=== PATIENT | male | born 1980 | race Caucasian/White ===

== ENCOUNTER 2022-08-20 14:10 | Inpatient (IN) | payer OTHER ==
[2022-08-20 17:22] VITALS: BMI 31.8
[2022-08-20] MEDS ORDERED: MAG HYDROX/AL HYDROX/SIMETH 30 ML UNIT-DOSE CUP PO PRN (19:43)
[2022-08-20] MEDS ORDERED: MAGNESIUM CITRATE 300 ML BOTTLE PO PRN (19:43)
[2022-08-20] MEDS ORDERED: BENZOCAINE/MENTHOL (CHLORASEPTIC ) LOZENGE MM PRN (19:43)
[2022-08-20] MEDS ORDERED: DICYCLOMINE HCL 10 MG CAPSULE PO PRN (19:43)
[2022-08-20] MEDS ORDERED: ONDANSETRON *ODT* 4 MG TABLET SL PRN (19:43)
[2022-08-20] MEDS ORDERED: NALOXONE HCL (KLOXXADO) 8 MG SPRAY NS PRN (19:43)
[2022-08-20] MEDS ORDERED: BISMUTH SUBSALICYLATE 524 MG/30 ML PO PRN (19:43)
[2022-08-20] MEDS ORDERED: IBUPROFEN 400 MG TABLET (FP) PO PRN (19:43)
[2022-08-20] MEDS ORDERED: LOPERAMIDE HCL 2 MG CAPSULE PO PRN (19:43)
[2022-08-20] MEDS ORDERED: chlordiazePOXIDE HCL 25 MG CAPSULE PO PRN (19:43)
[2022-08-20] MEDS ORDERED: MAGNESIUM HYDROX 2400MG/30ML ORAL SUSPENSION 30 ML CUP PO PRN (19:43)
[2022-08-20] MEDS ORDERED: ACETAMINOPHEN 325 MG TABLET (FP) PO PRN ×2 (19:43)
[2022-08-20] MEDS: MELATONIN 5 MG TABLETS PO SCH (22:18)
[2022-08-20] MEDS: THIAMINE HCL 100 MG TABLET (FP) PO SCH (22:18)
[2022-08-20] MEDS: chlordiazePOXIDE HCL 25 MG CAPSULE PO SCH (22:18)
[2022-08-20] MEDS: METHOCARBAMOL 500 MG TABLET PO PRN (22:18)
[2022-08-21] MEDS: chlordiazePOXIDE HCL 25 MG CAPSULE PO SCH ×4 (05:11→22:09)
[2022-08-21] MEDS: IBUPROFEN 600 MG TABLET (FP) PO PRN (05:13)
[2022-08-21] MEDS: METHOCARBAMOL 500 MG TABLET PO PRN (05:13)
[2022-08-21] MEDS: PRENATAL VITAMINS W/ FOLIC ACID TABLET (FP) PO SCH (10:15)
[2022-08-21] MEDS: TETRAHYDROZOLINE HCL EYE DROPS OU SCH ×2 (12:12→22:08)
[2022-08-21 12:30] LABS: HEMATOCRIT 39.4 % (35.4-49); MCH 32.4 pg (25.7-33.7); MCHC 33.1 g/dl (32.0-35.9); MEAN CELL VOLUME 97.8 fl (80-96); MEAN PLT VOLUME 8.1 fl (7.5-11.1); PLATELET COUNT 126 10^3/uL (134-434); RBC 4.03 M/mm3 (4.00-5.60); RDW 13.5 % (11.9-15.9); WHITE BLOOD COUNT 4.5 K/mm3 (4.0-10.0)
[2022-08-21 13:25] LABS: ALBUMIN 3.5 g/dl (3.4-5.0); BILIRUBIN,TOTAL 1.4 mg/dL (0.2-1); BLOOD UREA NITROGEN 8.7 mg/dL (7-18); CALCIUM 9.2 mg/dL (8.5-10.1); CREATININE 0.6 mg/dL (0.55-1.3); TOT PROT 7.2 g/dl (6.4-8.2)
[2022-08-21] MEDS: MELATONIN 5 MG TABLETS PO SCH (22:09)
[2022-08-21] MEDS: THIAMINE HCL 100 MG TABLET (FP) PO SCH (22:09)
[2022-08-22] MEDS: chlordiazePOXIDE HCL 25 MG CAPSULE PO SCH ×4 (05:44→22:15)
[2022-08-22] MEDS: PRENATAL VITAMINS W/ FOLIC ACID TABLET (FP) PO SCH (11:01)
[2022-08-22] MEDS: TETRAHYDROZOLINE HCL EYE DROPS OU SCH ×3 (11:01→22:36)
[2022-08-22] MEDS: THIAMINE HCL 100 MG TABLET (FP) PO SCH (22:15)
[2022-08-22] MEDS: MELATONIN 5 MG TABLETS PO SCH (22:16)
[2022-08-23] MEDS ORDERED: chlordiazePOXIDE HCL 10 MG CAPSULE PO PRN
[2022-08-23] MEDS ORDERED: chlordiazePOXIDE HCL 10 MG CAPSULE PO SCH (05:00)
[2022-08-23] MEDS: PRENATAL VITAMINS W/ FOLIC ACID TABLET (FP) PO SCH (10:32)
[2022-08-23] MEDS: METHOCARBAMOL 500 MG TABLET PO PRN (10:35)
[2022-08-23] MEDS: TETRAHYDROZOLINE HCL EYE DROPS OU SCH ×2 (10:50→22:28)
[2022-08-23] MEDS: LORazepam 0.5 MG TABLET PO SCH ×2 (13:23→22:28)
[2022-08-23 17:04] VITALS: RESP 18
[2022-08-23] MEDS: IBUPROFEN 600 MG TABLET (FP) PO PRN (17:44)
[2022-08-23] MEDS: MELATONIN 5 MG TABLETS PO SCH (22:27)
[2022-08-23] MEDS: THIAMINE HCL 100 MG TABLET (FP) PO SCH (22:28)
[2022-08-24] MEDS ORDERED: chlordiazePOXIDE HCL 10 MG CAPSULE PO SCH (05:00)
[2022-08-24] MEDS: LORazepam 0.5 MG TABLET PO SCH ×2 (05:39→17:49)
[2022-08-24] MEDS: TETRAHYDROZOLINE HCL EYE DROPS OU SCH ×2 (10:14→23:31)
[2022-08-24] MEDS: PRENATAL VITAMINS W/ FOLIC ACID TABLET (FP) PO SCH (10:14)
[2022-08-24] MEDS: METHOCARBAMOL 500 MG TABLET PO PRN (22:07)
[2022-08-24] MEDS: THIAMINE HCL 100 MG TABLET (FP) PO SCH (22:07)
[2022-08-24] MEDS: MELATONIN 5 MG TABLETS PO SCH (22:07)
[2022-08-25] MEDS ORDERED: chlordiazePOXIDE HCL 10 MG CAPSULE PO ONE (05:00)
[2022-08-25] MEDS ORDERED: LORazepam 0.5 MG TABLET PO ONE (06:00)
[2022-08-25] MEDS: PRENATAL VITAMINS W/ FOLIC ACID TABLET (FP) PO SCH (10:12)
[2022-08-25] MEDS: METHOCARBAMOL 500 MG TABLET PO PRN (10:12)
[2022-08-25] MEDS: TETRAHYDROZOLINE HCL EYE DROPS OU SCH (10:12)
[2022-08-25 12:32] VITALS: BP 138/90; PULSE 78; TEMP 97.1
== END 2022-08-25 14:00 | disposition home or self-care (01) | DRG 775 ==
LOC: YASAS 14:10 → Y6N 19:40
PROVIDERS: ADMIT Allergy & Immunology; ATTEND Surgery
PROC: HZ2ZZZZ Detoxification Services for Substance Abuse Treatment (ICD-10-PCS; principal; 2022-08-20)
DX: F10.230 Alcohol dependence with withdrawal, uncomplicated (principal); F12.20 Cannabis dependence, uncomplicated; F10.282 Alcohol dependence with alcohol-induced sleep disorder; F10.24 Alcohol dependence with alcohol-induced mood disorder; F32.A Depression, unspecified; F41.9 Anxiety disorder, unspecified; Z87.891 Personal history of nicotine dependence; Z86.69 Personal history of other diseases of the nervous system and sense organs; Z56.0 Unemployment, unspecified; Z59.00 Homelessness unspecified
CPT/HCPCS: 36415; 80053; 85027; 86780; 93005; 93010; C9803-CS; U0003; U0005

== ENCOUNTER 2022-11-12 15:34 | Inpatient (IN) | payer OTHER ==
[2022-11-12 15:57] VITALS: BMI 26.6
[2022-11-12] MEDS ORDERED: IBUPROFEN 400 MG TABLET (FP) PO PRN (17:36)
[2022-11-12] MEDS ORDERED: ONDANSETRON *ODT* 4 MG TABLET SL PRN (17:36)
[2022-11-12] MEDS ORDERED: DICYCLOMINE HCL 10 MG CAPSULE PO PRN (17:36)
[2022-11-12] MEDS ORDERED: BENZOCAINE/MENTHOL (CHLORASEPTIC ) LOZENGE MM PRN (17:36)
[2022-11-12] MEDS ORDERED: P-EPHED 60MG/TRIPROLIDI 2.5MG TABLET PO PRN (17:36)
[2022-11-12] MEDS ORDERED: BISMUTH SUBSALICYLATE 524 MG/30 ML PO PRN (17:36)
[2022-11-12] MEDS ORDERED: MAG HYDROX/AL HYDROX/SIMETH 30 ML UNIT-DOSE CUP PO PRN (17:36)
[2022-11-12] MEDS ORDERED: LOPERAMIDE HCL 2 MG CAPSULE PO PRN (17:36)
[2022-11-12] MEDS ORDERED: ACETAMINOPHEN 325 MG TABLET (FP) PO PRN ×2 (17:36)
[2022-11-12] MEDS ORDERED: MAGNESIUM HYDROX 2400MG/30ML ORAL SUSPENSION 30 ML CUP PO PRN (17:36)
[2022-11-12] MEDS ORDERED: guaiFENesin 200 MG/10 ML 10 ML UNIT-DOSE CUPS PO PRN (17:36)
[2022-11-12] MEDS ORDERED: POLYETHYLENE GLYCOL (HEALTHYLAX) 3350 17 GM PACKET PO PRN (17:36)
[2022-11-12] MEDS: hydrOXYzine PAMOATE 25 MG CAPSULE (FP) PO PRN ×2 (19:37→22:27)
[2022-11-12] MEDS: MELATONIN 5 MG TABLETS PO PRN (22:27)
[2022-11-12] MEDS: THIAMINE HCL 100 MG TABLET (FP) PO SCH (22:27)
[2022-11-12] MEDS: METHOCARBAMOL 500 MG TABLET PO PRN (22:29)
[2022-11-12] MEDS: diazePAM 5 MG TABLET PO PRN (22:29)
[2022-11-12] MEDS: TETRAHYDROZOLINE HCL EYE DROPS OU SCH (22:37)
[2022-11-13] MEDS: diazePAM 5 MG TABLET PO SCH ×4 (05:36→22:29)
[2022-11-13] MEDS: PRENATAL VITAMINS W/ FOLIC ACID TABLET (FP) PO SCH (10:16)
[2022-11-13] MEDS: METHOCARBAMOL 500 MG TABLET PO PRN ×2 (10:16→22:27)
[2022-11-13] MEDS: hydrOXYzine PAMOATE 25 MG CAPSULE (FP) PO PRN (10:16)
[2022-11-13] MEDS: TETRAHYDROZOLINE HCL EYE DROPS OU SCH ×2 (10:17→22:29)
[2022-11-13 11:41] LABS: HEMATOCRIT 40.2 % (35.4-49); HEMOGLOBIN 12.9 GM/dL (11.7-16.9); MCH 31.3 pg (25.7-33.7); MCHC 32.1 g/dl (32.0-35.9); MEAN CELL VOLUME 97.5 fl (80-96); MEAN PLT VOLUME 8.5 fl (7.5-11.1); PLATELET COUNT 213 10^3/uL (134-434); RBC 4.13 M/mm3 (4.00-5.60); RDW 13.7 % (11.9-15.9); WHITE BLOOD COUNT 5.1 K/mm3 (4.0-10.0)
[2022-11-13 11:55] LABS: CALCIUM 8.9 mg/dL (8.5-10.1)
[2022-11-13 11:56] LABS: ALBUMIN 3.3 g/dl (3.4-5.0); BLOOD UREA NITROGEN 13.9 mg/dL (7-18)
[2022-11-13 11:59] LABS: CREATININE 0.7 mg/dL (0.55-1.3)
[2022-11-13 12:00] LABS: BILIRUBIN,TOTAL 0.6 mg/dL (0.2-1); TOT PROT 6.6 g/dl (6.4-8.2)
[2022-11-13] MEDS: diazePAM 5 MG TABLET PO PRN ×2 (13:15→18:05)
[2022-11-13] MEDS: IBUPROFEN 600 MG TABLET (FP) PO PRN (18:05)
[2022-11-13] MEDS: MELATONIN 5 MG TABLETS PO PRN (22:27)
[2022-11-13] MEDS: THIAMINE HCL 100 MG TABLET (FP) PO SCH (22:27)
[2022-11-14] MEDS: diazePAM 5 MG TABLET PO SCH ×3 (05:41→22:09)
[2022-11-14] MEDS: IBUPROFEN 600 MG TABLET (FP) PO PRN ×2 (05:42→13:59)
[2022-11-14] MEDS: PRENATAL VITAMINS W/ FOLIC ACID TABLET (FP) PO SCH (10:12)
[2022-11-14] MEDS: hydrOXYzine PAMOATE 25 MG CAPSULE (FP) PO PRN (10:13)
[2022-11-14] MEDS: METHOCARBAMOL 500 MG TABLET PO PRN ×2 (10:13→22:10)
[2022-11-14] MEDS: TETRAHYDROZOLINE HCL EYE DROPS OU SCH ×2 (10:14→22:09)
[2022-11-14] MEDS: THIAMINE HCL 100 MG TABLET (FP) PO SCH (22:08)
[2022-11-14] MEDS: MELATONIN 5 MG TABLETS PO PRN (22:08)
[2022-11-15] MEDS: diazePAM 5 MG TABLET PO SCH ×2 (05:41→17:19)
[2022-11-15] MEDS: IBUPROFEN 600 MG TABLET (FP) PO PRN ×2 (05:42→17:21)
[2022-11-15] MEDS: PRENATAL VITAMINS W/ FOLIC ACID TABLET (FP) PO SCH (10:10)
[2022-11-15] MEDS: TETRAHYDROZOLINE HCL EYE DROPS OU SCH ×2 (10:11→22:19)
[2022-11-15] MEDS: diazePAM 5 MG TABLET PO PRN (15:52)
[2022-11-15] MEDS: THIAMINE HCL 100 MG TABLET (FP) PO SCH (22:19)
[2022-11-15] MEDS: MELATONIN 5 MG TABLETS PO PRN (22:19)
[2022-11-15] MEDS: hydrOXYzine PAMOATE 25 MG CAPSULE (FP) PO PRN (22:19)
[2022-11-16] MEDS: IBUPROFEN 600 MG TABLET (FP) PO PRN ×2 (05:28→22:19)
[2022-11-16] MEDS ORDERED: diazePAM 5 MG TABLET PO ONE (06:00)
[2022-11-16] MEDS: PRENATAL VITAMINS W/ FOLIC ACID TABLET (FP) PO SCH (11:00)
[2022-11-16] MEDS: hydrOXYzine PAMOATE 25 MG CAPSULE (FP) PO PRN (11:04)
[2022-11-16] MEDS: TETRAHYDROZOLINE HCL EYE DROPS OU SCH ×2 (11:04→22:24)
[2022-11-16] MEDS: METHOCARBAMOL 500 MG TABLET PO PRN ×2 (11:04→22:20)
[2022-11-16] MEDS: MELATONIN 5 MG TABLETS PO PRN (22:19)
[2022-11-16] MEDS: THIAMINE HCL 100 MG TABLET (FP) PO SCH (22:21)
[2022-11-17] MEDS: IBUPROFEN 600 MG TABLET (FP) PO PRN (05:22)
[2022-11-17] MEDS: hydrOXYzine PAMOATE 25 MG CAPSULE (FP) PO PRN (05:23)
[2022-11-17 10:13] VITALS: BP 117/69; PULSE 71; RESP 17; TEMP 97.3
[2022-11-17] MEDS: PRENATAL VITAMINS W/ FOLIC ACID TABLET (FP) PO SCH (10:13)
[2022-11-17] MEDS: TETRAHYDROZOLINE HCL EYE DROPS OU SCH (10:15)
== END 2022-11-17 11:21 | disposition home or self-care (01) | DRG 775 ==
LOC: YASAS 15:34 → Y6N 18:55
PROVIDERS: ADMIT Allergy & Immunology; ATTEND Allergy & Immunology
PROC: HZ2ZZZZ Detoxification Services for Substance Abuse Treatment (ICD-10-PCS; principal; 2022-11-12)
DX: F10.230 Alcohol dependence with withdrawal, uncomplicated (principal); F12.20 Cannabis dependence, uncomplicated; F10.220 Alcohol dependence with intoxication, uncomplicated; F41.9 Anxiety disorder, unspecified; F32.A Depression, unspecified
CPT/HCPCS: 36415; 80053; 85027; 86780; C9803-CS; U0003; U0005